=== PATIENT | male | born 1985 | race Caucasian/White ===

== ENCOUNTER → 2021-07-01 | Outpatient (CLI) | payer BC ==
[~2021-07-01] MED LIST: EMPA10TA PO; LISI10TA16 PO; LORA10CA PO; METF10007 PO; [UNRECOGNIZED DRUG - CODE] IV
--- NOTE | 2021-07-01 15:36 | KCIC ---
EXAM: XR LT TOE 2+ VIEWS 07/01/2021 11:28 AM CLINICAL INDICATION: Nonpressure chronic ulcer left great toe. Diabetic ulcer the undersurface of le ft great toe. COMPARISON: None TECHNIQUE: 3 views of the left great toe FINDINGS: There is osseous destruction of the great toe proximal and distal phalanx about the interp halangeal joint, consistent with osteomyelitis. There is joint space narrowing of the interphalangeal joint. Mild soft tissue swelling. No soft tissue gas. IMPRESSION: Osseous destruction of the great toe proximal and distal phalanges consistent with acute osteomyelitis. Septic arthritis at the great toe interphalangeal joint is possible. MRI could be obt ained to further evaluate as indicated. Electronically signed by: Yahaira Escobar MD (07/01/2021 3:33 PM) [id number]
== END ==
LOC: KCIC 11:25
PROVIDERS: ATTEND Family Medicine
DX: L97.522 Non-pressure chronic ulcer of other part of left foot with fat layer exposed (principal); M79.89 Other specified soft tissue disorders
CPT/HCPCS: 73660